=== PATIENT | female | born 1995 | race Two or more races ===

== ENCOUNTER 2017-05-11 18:44 | Emergency (ER) | payer SELFPAY ==
[~2017-05-11] VITALS: Ht 157.5 cm; Wt 49.9 kg
[2017-05-11 18:49] VITALS: BP 125/76
[2017-05-11 19:18] LABS: Basophils # (auto) 0.1 uL; Basophils % (auto) 1.2 % (0.0-2.0); CONDITION Y; Eosinophils # (auto) 0.1 uL; Eosinophils % (auto) 1.4 % (0.0-7.0); Hematocrit 40.6 % (36.0-46.0); Hemoglobin 13.3 g/dL (12.2-16.2); Lymphocytes # (auto) 2.4 uL; Lymphocytes % (auto) 29.9 % (10.0-50.0); Mean Corpuscular Hemoglobin 27.5 pg (28.0-32.0); Mean Corpuscular Hgb Conc. 32.8 g/dL (32.0-36.0); Mean Corpuscular Volume 84.1 fL (80.0-100.0); Mean Platelet Volume 7.4 fL (7.4-10.4); Monocytes # (auto) 0.7 uL; Monocytes % (auto) 8.4 % (0.0-12.0); Neutrophils # (auto) 4.8 uL; Neutrophils % (auto) 59.1 % (37.0-80.0); Platelet Count (auto) 373 10^3/uL (140-450); Red Cell Distribution Width 18.5 % (11.6-16.0); White Blood Cell 8.1 10^3/uL (4.4-10.8)
[2017-05-11 19:30] LABS: Albumin 3.4 g/dL (3.4-5.0); BUN/Creatinine Ratio 38.9; Potassium 3.7 mmol/L (3.5-5.1)
[2017-05-11 19:33] LABS: Bilirubin, Total 0.7 mg/dL (0.2-1.0); Total Protein 7.5 g/dL (6.4-8.2)
== END 2017-05-11 19:48 | disposition left against medical advice (07) ==
LOC: ER 18:54
DX: R10.9 Unspecified abdominal pain (principal); Z53.21 Procedure and treatment not carried out due to patient leaving prior to being seen by health care provider
CPT/HCPCS: 36415; 80053; 84702; 85025